=== PATIENT | male | born 1965 | race Hispanic/Latino ===

== ENCOUNTER 2021-01-17 06:34 | Day surgery (SDC) | payer OTHER ==
[2021-01-16 10:52] LABS: BASOPHILS % (AUTO) 0.6 % (0.0-5.0); EOSINOPHILS % (AUTO) 3.7 % (0.0-8.0); HEMATOCRIT 39.4 % (42-54); LYMPHOCYTES % (AUTO) 23.3 % (21.0-51.0); MEAN CORPUSCULAR HEMOGLOBIN 30.7 pg (27.0-33.0); MEAN CORPUSCULAR HGB CONC 34.3 g/dL (32.0-36.0); MEAN CORPUSCULAR VOLUME 89.5 fL (79-99); MONOCYTES % (AUTO) 8.3 % (3.0-13.0); NEUTROPHILS % (AUTO) 63.7 % (40.0-77.0); PLATELET COUNT (AUTO) 326 K/uL (130-400); RED CELL DISTRIBUTION WIDTH 12.4 % (11.0-15.5); WHITE BLOOD COUNT (AUTO) 6.7 K/uL (4.8-10.8)
[2021-01-16 10:59] LABS: CREATININE 0.9 mg/dL (0.5-1.5)
[2021-01-16 14:48] VITALS: BP 149/88
[~2021-01-17] VITALS: Ht 172.7 cm; Wt 86.3 kg
[2021-01-17] VITALS (17 sets, daily range): BP systolic 112–138; BP diastolic 67–84
[~2021-01-17 06:34] MED LIST: AMLO2.5T4 PO; CARV6.25 PO; IBUP-2076 PO; LEVOTHYROXINE PO; LISI20TA24 PO
[2021-01-17] MEDS ORDERED: LACTATED RINGERS 1000ML 1,000 ML IV ONE (06:51)
[2021-01-17] MEDS ORDERED: CEFAZOLIN SODIUM 1 GM VIAL ONE ×2 (06:51→08:21)
[2021-01-17] MEDS ORDERED: PROPOFOL 10 MG/ML 20ML VIAL IV ONE (07:44)
[2021-01-17] MEDS ORDERED: LIDOCAINE PF 100MG/5ML (2%) SYRINGE 5ML ONE (07:44)
[2021-01-17] MEDS ORDERED: SUCCINYLCHOLINE CHLORIDE 20 MG/ML 10 ML VIAL ONE (07:44)
[2021-01-17] MEDS ORDERED: ROCURONIUM 10MG/1ML SYR 10 MG/ML ML ONE (07:44)
[2021-01-17] MEDS ORDERED: FENTANYL CITRATE PF 50 MCG/1 ML 2ML VIAL ONE (07:44)
[2021-01-17] MEDS ORDERED: ROPIVACAINE 0.5% 5MG/ML 30ML IJ ONE (07:53)
[2021-01-17] MEDS ORDERED: CEFAZOLIN SODIUM 1 GM VIAL IVP ONE (08:00)
[2021-01-17] MEDS ORDERED: EPHEDRINE SULFATE 50 MG/ML AMPULE ONE (08:37)
[2021-01-17] MEDS ORDERED: NEOSTIGMINE 5MG/5ML SYR IV ONE (10:32)
[2021-01-17] MEDS ORDERED: GLYCOPYRROLATE 1 MG/5 ML SYRINGE ONE (10:32)
[2021-01-17] MEDS ORDERED: KETOROLAC 30MG VIAL (30MG/ML) ONE (10:32)
[2021-01-17] MEDS ORDERED: EPINEPHRINE 1 MG/ML 30ML VIAL IJ ONE (10:55)
[2021-01-17] MEDS ORDERED: CEPH500B PO (11:02)
[2021-01-17] MEDS ORDERED: HYDR-4060 PO (11:02)
== END 2021-01-17 12:35 | disposition home or self-care (01) ==
LOC: DAH 06:34
PROVIDERS: ATTEND Orthopaedic Surgery
DX: S43.101A Unspecified dislocation of right acromioclavicular joint, initial encounter (principal); Z20.822 Contact with and (suspected) exposure to COVID-19; I10 Essential (primary) hypertension; E03.9 Hypothyroidism, unspecified; Z98.52 Vasectomy status; Z98.890 Other specified postprocedural states; W19.XXXA Unspecified fall, initial encounter; Y93.89 Activity, other specified; Y92.89 Other specified places as the place of occurrence of the external cause
CPT/HCPCS: 23660; 36415; 64415; 73000; 76942; 80048; 85025; 87635; A4215; A4221; A4222; A4223; A4565; A4600; A4663; A4930; A5120; A6207; C1713; C9803; J0171; J0330; J0690 ×2; J1885; J2001; J2704; J2710; J2795; J3010; J3490 ×2; J7030; J7120 ×2

== ENCOUNTER → 2021-04-03 | Outpatient (CLI) | payer BC, OTHER ==
[~2021-04-03] MED LIST changes: +CEPH500B PO; +CLON1TAB12 PO; +HYDR-4060 PO; +ZOLP10TA2 PO
[2021-04-03 10:23] LABS: BASOPHILS % (AUTO) 0.4 % (0.0-5.0); EOSINOPHILS % (AUTO) 1.7 % (0.0-8.0); LYMPHOCYTES % (AUTO) 28.8 % (21.0-51.0); MEAN CORPUSCULAR HGB CONC 33.7 g/dL (32.0-36.0); MONOCYTES % (AUTO) 7.6 % (3.0-13.0); NEUTROPHILS % (AUTO) 61.3 % (40.0-77.0); PLATELET COUNT (AUTO) 293 K/uL (130-400); RED BLOOD CELL COUNT(AUTO) 4.83 MIL/uL (4.50-6.20); WHITE BLOOD COUNT (AUTO) 5.4 K/uL (4.8-10.8)
[2021-04-03 10:36] LABS: HEMOGLOBIN A1C 5.6 % (4.0-6.0)
[2021-04-03 10:57] LABS: ALBUMIN 3.8 g/dL (3.5-5.0); BILIRUBIN,TOTAL 1.1 mg/dL (0.2-1.0); CREATININE 0.8 mg/dL (0.5-1.5); POTASSIUM 3.9 mmol/L (3.5-5.1); THYROID STIMULATING HORMONE 2.28 uIU/mL (0.36-3.74); TOTAL PROTEIN, SERUM 7.6 g/dL (6.0-8.3)
== END | disposition home or self-care (01) ==
LOC: LAB 09:31
PROVIDERS: ATTEND Internal Medicine
DX: Z12.11 Encounter for screening for malignant neoplasm of colon (principal); Z12.5 Encounter for screening for malignant neoplasm of prostate; I10 Essential (primary) hypertension; R73.03 Prediabetes; D35.2 Benign neoplasm of pituitary gland; E03.4 Atrophy of thyroid (acquired)
CPT/HCPCS: 36415; 80053; 80061; 82270; 83036; 84146; 84153; 84443; 85025

== ENCOUNTER 2021-10-01 03:29 | Emergency (ER) | payer BC, OTHER ==
[~2021-10-01] VITALS: Ht 172.7 cm; Wt 95.3 kg
[2021-10-01 03:30] VITALS: BP 169/79
== END 2021-10-01 03:56 | disposition home or self-care (01) ==
LOC: EDH 03:29
DX: Z02.83 Encounter for blood-alcohol and blood-drug test (principal)